=== PATIENT | male | born 1935 | race Caucasian/White ===

== ENCOUNTER 2018-07-04 08:57 | Inpatient (IN) | payer MEDICARE ==
[2018-07-03 15:09] LABS: BASOPHILS % (AUTO) 0.5 % (0-1); EOSINOPHILS # (AUTO) 0.3 X10'3 (0-0.9); HEMATOCRIT 49.8 % (42.0-52.0); HEMOGLOBIN 16.9 g/dl (14.0-17.9); LYMPHOCYTES # (AUTO) 2.4 X10'3 (1.1-4.8); LYMPHOCYTES % (AUTO) 28.2 % (21-51); MEAN CORPUSCULAR HEMOGLOBIN 31.2 PG (27.0-31.0); MEAN CORPUSCULAR HGB CONC 33.9 % (33.0-36.5); MEAN CORPUSCULAR VOLUME 91.9 FL (78-98); MEAN PLATELET VOLUME 8.6 FL (7.4-10.4); MONOCYTES # (AUTO) 0.7 X10'3 (0-0.9); MONOCYTES % (AUTO) 7.7 % (2-12); NEUTROPHILS # (AUTO) 5.2 X10'3 (1.8-7.7); NEUTROPHILS % (AUTO) 60.6 % (42-75); PLATELET COUNT 285 X10'3 (140-440); RED BLOOD COUNT 5.42 X10'6 (4.70-6.10); RED CELL DISTRIBUTION WIDTH 13.3 % (11.5-14.5); WHITE BLOOD COUNT 8.6 X10'3 (4.5-11.0)
[2018-07-03 15:21] LABS: INR 1.2 INR; PARTIAL THROMBOPLASTIN TIME 46 SECONDS (22-32); PROTHROMBIN TIME 11.6 SECONDS (9.0-12.0)
[2018-07-03 15:30] LABS: ALBUMIN 3.9 G/DL (3.4-5.0); ANION GAP 10 (8-16); BLOOD UREA NITROGEN 16 MG/DL (7-18); BUN/CREATININE RATIO 14.2 (5.4-32.0); CALCIUM 8.9 MG/DL (8.5-10.1); CHLORIDE 105 MMOL/L (99-107); CREATININE 1.13 MG/DL (0.60-1.10); GLUCOSE 97 MG/DL (70-104); POTASSIUM 3.9 MMOL/L (3.5-5.1); SODIUM 142 MMOL/L (135-145); eGFR 62 ML/MIN
[2018-07-04] VITALS (16 sets, daily range): BP systolic 98–153; BP diastolic 46–84
[~2018-07-04] VITALS: Ht 188 cm; Wt 106.7 kg
[~2018-07-04 08:57] MED LIST: CARCD120C PO; DABI150C PO; PANT40TA4 PO; SOTA80TA73 PO
[2018-07-04] MEDS ORDERED: LORazepam 0.5 MG tablet PO PRN (09:40)
[2018-07-04] MEDS ORDERED: diphenhydrAMINE 25mg capsule PO PRN (09:40)
[2018-07-04] MEDS: normal saline 1000ml 1,000 ML IV SCH ×2 (10:17→19:40)
[2018-07-04] MEDS ORDERED: SOTA80TA PO (10:31)
[2018-07-04] MEDS ORDERED: DABI150C PO (10:31)
[2018-07-04] MEDS ORDERED: SYN0.112T PO (10:31)
[2018-07-04] MEDS ORDERED: DILT240C PO (10:31)
[2018-07-04] MEDS ORDERED: CYAN1TAB16 PO (10:31)
[2018-07-04] MEDS ORDERED: midazolam 2 mg/2 ml injection ONE (10:41)
[2018-07-04] MEDS ORDERED: fentaNYL/PF 50MCG/1 ML 2ML syringe ONE (10:42)
[2018-07-04] MEDS ORDERED: LIDOcaine 1% (10mg/ml)w/preservative injection 20ml MDV ONE (10:42)
[2018-07-04] MEDS ORDERED: iohexol 350 MG/ML 50ML vial IV ONE (10:42)
[2018-07-04] MEDS ORDERED: nitroGLYCERIN-Tridil 50MG/D5W 250 ML IV ONE (10:42)
[2018-07-04] MEDS ORDERED: heparin 1,000unit/ml 10ml vial 10 ML ONE (10:42)
[2018-07-04] MEDS ORDERED: iohexol 350MG/ML 100ml bottle IV ONE ×2 (10:42→11:32)
[2018-07-04] MEDS ORDERED: heparin 1,000 UNITS/NS 500ml 500 ML ONE (12:15)
[2018-07-04] MEDS ORDERED: heparin 25,000 UNIT/250ml bag 250 ML IV ONE (12:17)
[2018-07-04] MEDS ORDERED: atropine 0.1mg/ml 10ml syringe ONE (12:37)
[2018-07-04] MEDS ORDERED: verapamil 2.5 mg/ml inj IV ONE (12:44)
[2018-07-04] MEDS ORDERED: clopidogrel 300mg tablet ONE (12:52)
[2018-07-04] MEDS ORDERED: OXAZEpam 15mg capsule PO PRN (14:00)
[2018-07-04] MEDS ORDERED: HYDROcodone/acetaminophen 10/325mg tab PO PRN ×2 (14:00→14:05)
[2018-07-04] MEDS ORDERED: aspirin 81mg tab.chew PO ONE (14:00)
[2018-07-04] MEDS ORDERED: CLOPIDOGREL BISULFATE 300MG TAB PO ONE (14:00)
[2018-07-04] MEDS ORDERED: proCHLORperazine 10 MG/2 ml inj IV PRN (14:00)
[2018-07-04] MEDS ORDERED: acetaminophen 325mg tablet PO PRN (14:00)
[2018-07-04] MEDS ORDERED: magnesium hydroxide 30ml (MOM) UD suspension PO PRN (14:00)
[2018-07-04] MEDS ORDERED: cyclobenzaprine 10mg tablet PO PRN (14:05)
[2018-07-04] MEDS ORDERED: heparin 10,000 units/1 ML INJ IV PRN (14:20)
[2018-07-04] MEDS: heparin 25,000 UNIT/250ml bag 250 ML IV SCH (14:20)
--- NOTE | 2018-07-04 18:30 | NUR ---
Patient in room CICU 2016. I have received report from THERESA Aquino and had the opportunity to ask questions and assume patient care. 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 Patient educated that he must keep right leg straight due to arterial fem sheath, patient verbalized understanding. Patient aware that I will be checking his PTT every 6 hours due to the Heparin drip he is on. POC discussed with patient, all questions addressed at this time.
--- NOTE | 2018-07-04 19:30 | NUR ---
no changes made on heparin drip as ptt is 56 which is within the therapeutic range. Will recheck PTT in 6 hours.
[2018-07-04] MEDS: docusate sod 100mg capsule PO SCH (19:41)
[2018-07-04] MEDS: sotalol 80mg tablet PO SCH (20:00)
[2018-07-05] VITALS (24 sets, daily range): BP systolic 113–179; BP diastolic 55–84
--- NOTE | 2018-07-05 01:30 | NUR ---
PTT this hour came back at 49. Patient remains in therapeutic range. No change to drip made at this time.
[2018-07-05 04:34] LABS: BASOPHILS % (AUTO) 0.4 % (0-1); EOSINOPHILS # (AUTO) 0.2 X10'3 (0-0.9); EOSINOPHILS % (AUTO) 3.2 % (0-6); HEMOGLOBIN 14.7 g/dl (14.0-17.9); LYMPHOCYTES # (AUTO) 1.8 X10'3 (1.1-4.8); LYMPHOCYTES % (AUTO) 27.9 % (21-51); MEAN CORPUSCULAR HEMOGLOBIN 30.4 PG (27.0-31.0); MEAN CORPUSCULAR HGB CONC 32.7 % (33.0-36.5); MEAN CORPUSCULAR VOLUME 92.9 FL (78-98); MEAN PLATELET VOLUME 8.4 FL (7.4-10.4); MONOCYTES # (AUTO) 0.5 X10'3 (0-0.9); MONOCYTES % (AUTO) 8.2 % (2-12); NEUTROPHILS # (AUTO) 3.8 X10'3 (1.8-7.7); NEUTROPHILS % (AUTO) 60.3 % (42-75); PLATELET COUNT 227 X10'3 (140-440); RED BLOOD COUNT 4.85 X10'6 (4.70-6.10); RED CELL DISTRIBUTION WIDTH 12.4 % (11.5-14.5); WHITE BLOOD COUNT 6.3 X10'3 (4.5-11.0)
[2018-07-05 04:58] LABS: ALBUMIN 3.2 G/DL (3.4-5.0); ANION GAP 12 (8-16); BLOOD UREA NITROGEN 16 MG/DL (7-18); BUN/CREATININE RATIO 15.5 (5.4-32.0); CALCIUM 7.9 MG/DL (8.5-10.1); CHLORIDE 106 MMOL/L (99-107); CREATININE 1.03 MG/DL (0.60-1.10); GLUCOSE 96 MG/DL (70-104); POTASSIUM 3.3 MMOL/L (3.5-5.1); SODIUM 142 MMOL/L (135-145); TOTAL CARBON DIOXIDE 23.9 MMOL/L (24-32); eGFR 69 ML/MIN
[2018-07-05] MEDS: normal saline 1000ml 1,000 ML IV SCH ×2 (05:40→15:40)
--- NOTE | 2018-07-05 06:20 | NUR ---
Problems reprioritized. Patient report given, questions answered & plan of care reviewed with THERESA Aquino.
[2018-07-05] MEDS ORDERED: nitroGLYCERIN-Tridil 50MG/D5W 250 ML IV ONE (06:42)
[2018-07-05] MEDS ORDERED: midazolam 2 mg/2 ml injection ONE (06:43)
[2018-07-05] MEDS ORDERED: LIDOcaine 1% (10mg/ml)w/preservative injection 20ml MDV ONE (06:43)
[2018-07-05] MEDS ORDERED: heparin 1,000unit/ml 10ml vial 10 ML ONE (06:43)
[2018-07-05] MEDS ORDERED: fentaNYL/PF 50MCG/1 ML 2ML syringe ONE (06:43)
[2018-07-05] MEDS ORDERED: iohexol 350 MG/1 ML 200ml bottle ONE (06:43)
[2018-07-05] MEDS ORDERED: heparin 1,000 UNITS/NS 500ml 500 ML ONE (06:52)
[2018-07-05] MEDS ORDERED: HYDROmorphone 1 mg/ml syringe ONE (07:43)
[2018-07-05] MEDS ORDERED: clopidogrel 300mg tablet ONE (07:55)
[2018-07-05] MEDS ORDERED: [UNRECOGNIZED DRUG - OTHER] PO SCH (08:00)
[2018-07-05] MEDS: clopidogrel 75mg tablet PO SCH (08:00)
[2018-07-05] MEDS: levoTHYROXINE 112mcg tablet PO SCH (08:00)
[2018-07-05] MEDS ORDERED: CYANOCOBALAMIN PO SCH (08:00)
[2018-07-05] MEDS ORDERED: PYRIDOXINE PO SCH (08:00)
[2018-07-05] MEDS: docusate sod 100mg capsule PO SCH ×2 (08:00→20:18)
[2018-07-05] MEDS ORDERED: aspirin 325mg tablet PO SCH (08:30)
[2018-07-05] MEDS: atorvastatin 20mg tablet PO SCH (10:07)
[2018-07-05] MEDS: diltiazem CD 120mg capsule (once-daily) PO SCH (10:08)
[2018-07-05] MEDS: sotalol 80mg tablet PO SCH ×2 (10:08→20:18)
[2018-07-05] MEDS ORDERED: ASPI-1071 PO (11:01)
[2018-07-05] MEDS ORDERED: CLOP75TA35 PO (11:01)
[2018-07-05] MEDS ORDERED: ATOR20TA66 PO (11:01)
[2018-07-05] MEDS ORDERED: atropine 0.1mg/ml 10ml syringe ONE (11:25)
[2018-07-05] MEDS ORDERED: hydrALAZINE 20mg/ml inj. IV ONE ×2 (11:25→11:30)
--- NOTE | 2018-07-05 12:08 | NUR ---
attempted to call Dr. Christensen in office. out of office from [phone]. Called chemistry lab instructor to notify that Sheath still in d/t persistent hypertension (after 10mg 1 time dose from Efe Buck NP). Dr. Christensen not available at this time "supposed to be here in chemistry lab instructor in about 30 minutes." Will attempt to call back .
--- NOTE | 2018-07-05 14:11 | NUR ---
Education provided to patient, son and son's for care of a femstop and doppler pulses being checked. VSS. The son, Aldo, wishes that any education be provided with him present, due to patient's short term memory issues.
[2018-07-05] MEDS: heparin 25,000 UNIT/250ml bag 250 ML IV SCH (15:20)
--- NOTE | 2018-07-05 18:18 | NUR ---
Patient in room MED 312. I have received report from Art and had the opportunity to ask questions and assume patient care.
[2018-07-06] MEDS: normal saline 1000ml 1,000 ML IV SCH (01:40)
[2018-07-06 02:00] VITALS: BP 132/57
[2018-07-06] MEDS ORDERED: potassium Cl 40MEQ/NS 500ml 500 ML IV PRN ×2 (03:20)
[2018-07-06] MEDS ORDERED: potassium Cl 20 mEq SR tablet PO PRN ×2 (03:20)
[2018-07-06 06:00] VITALS: BP 131/57
[2018-07-06 07:08] LABS: CHOLESTEROL 195 MG/DL (0-200); HDL CHOLESTEROL 28 MG/DL (35-60); LDL CHOLESTEROL 139 MG/DL (50-100); TRIGLYCERIDES 183 MG/DL (20-135)
[2018-07-06] MEDS: clopidogrel 75mg tablet PO SCH (07:35)
[2018-07-06] MEDS: atorvastatin 20mg tablet PO SCH (07:35)
[2018-07-06] MEDS: docusate sod 100mg capsule PO SCH (07:35)
[2018-07-06] MEDS: sotalol 80mg tablet PO SCH (07:35)
[2018-07-06] MEDS: diltiazem CD 120mg capsule (once-daily) PO SCH (07:35)
[2018-07-06] MEDS: levoTHYROXINE 112mcg tablet PO SCH (07:35)
[2018-07-06] MEDS ORDERED: K and/or MAG REPLACEMENT MC SCH (08:00)
[2018-07-06] MEDS ORDERED: aspirin 81mg tablet.DR PO SCH (08:00)
== END 2018-07-06 08:55 | disposition home or self-care (01) | DRG 247 ==
LOC: SSTAY O 08:57 → CICU 2S 17:35 → MED 3N 07-05 16:30
PROVIDERS: ADMIT Internal Medicine Cardiovascular Disease; ATTEND Internal Medicine Cardiovascular Disease
PROC: 4A023N7 Measurement of Cardiac Sampling and Pressure, Left Heart, Percutaneous Approach (ICD-10-PCS; principal; 2018-07-04)
PROC: 027034Z Dilation of Coronary Artery, One Artery with Drug-eluting Intraluminal Device, Percutaneous Approach (ICD-10-PCS; 2018-07-04)
PROC: B2111ZZ Fluoroscopy of Multiple Coronary Arteries using Low Osmolar Contrast (ICD-10-PCS; 2018-07-04)
PROC: B2151ZZ Fluoroscopy of Left Heart using Low Osmolar Contrast (ICD-10-PCS; 2018-07-04)
PROC: B2181ZZ Fluoroscopy of Left Internal Mammary Bypass Graft using Low Osmolar Contrast (ICD-10-PCS; 2018-07-04)
PROC: B2131ZZ Fluoroscopy of Multiple Coronary Artery Bypass Grafts using Low Osmolar Contrast (ICD-10-PCS; 2018-07-04)
PROC: B24BZZ3 Ultrasonography of Heart with Aorta, Intravascular (ICD-10-PCS; 2018-07-04)
PROC: 027034Z Dilation of Coronary Artery, One Artery with Drug-eluting Intraluminal Device, Percutaneous Approach (ICD-10-PCS; 2018-07-05)
DX: T82.898A Other specified complication of vascular prosthetic devices, implants and grafts, initial encounter (principal); I10 Essential (primary) hypertension; E78.5 Hyperlipidemia, unspecified; I25.10 Atherosclerotic heart disease of native coronary artery without angina pectoris; Y83.2 Surgical operation with anastomosis, bypass or graft as the cause of abnormal reaction of the patient, or of later complication, without mention of misadventure at the time of the procedure; I48.0 Paroxysmal atrial fibrillation; Z95.1 Presence of aortocoronary bypass graft; Z79.02 Long term (current) use of antithrombotics/antiplatelets; Z79.82 Long term (current) use of aspirin; Z79.899 Other long term (current) drug therapy; Y92.89 Other specified places as the place of occurrence of the external cause
CPT/HCPCS: C9600 ×2; 36415; 80048; 80061; 82948; 83880; 85025; 85347; 85610; 85730; 93005; 99152; 99153; A4620; A6257; C1725; C1769; C1874; C1894; G0378; J0360; J0461; J1170; J1644; J2001; J2250; J3010; J3490; J7030; Q0163; Q9967